=== PATIENT | male | born 1965 | race American Indian/Alaskan Native ===

== ENCOUNTER 2017-10-29 18:00 | Emergency (ER) | payer SELFPAY ==
[2017-10-29 18:48] LABS: Hematocrit 37.4 % (35.5-45.6); Hemoglobin 12.5 gm/dl (11.8-15.2); Mean Corpuscular HGB Conc 33 % (32-34); Mean Corpuscular Hemoglobin 32 pg (28-32); Mean Corpuscular Volume 95 fl (84-94); Platelet Count 210 K/mm3 (140-440); Red Blood Count 3.95 M/mm3 (3.65-5.03); Red Cell Distribution Width 13.8 % (13.2-15.2)
[2017-10-29 18:58] LABS: BUN/Creatinine Ratio 9; Blood Urea Nitrogen 7 mg/dL (9-20); Calcium 8.6 mg/dL (8.4-10.2); Hemolysis Index 8
--- NOTE | 2017-10-29 19:19 | Emergency Department Report ---
ED Male HPI - General Chief complaint: Urogenital-Male Stated complaint: TESTICLE SWELLING/BLOOD IN URINE Time Seen by Provider: 10/29/17 19:08 Source: patient Mode of arrival: Ambulatory Limitations: No Limitations - History of Present Illness Initial comments: Patient is 52 years old male with no significant past medical history presented to the ER with left scrotal swelling for the last week. Patient stated that he had the same issue U month ago and he was treated with antibiotic for 7 days in he symptoms completely resolves. Patient stated that elevation of his testicle help with the pain. He denied any fever nausea or vomiting. Patient is sexually active but he does not mention any partner he has. No other complaints. MD Complaint: testicle swelling, penile discharge, dysuria -: week(s) Location: left testicle Severity: moderate Consistency: intermittent discharge - Related Data Previous Rx's Medication Instructions Recorded Last Taken Type Ciprofloxacin HCl [Ciprofloxacin 500 mg PO Q12H #20 tab 10/29/17 Unknown Rx TAB] Naproxen [Naprosyn] 500 mg PO BID #14 tablet 10/29/17 Unknown Rx Allergies Allergy/AdvReac Type Severity Reaction Status Date / Time No Known Allergies Allergy Unverified 10/29/17 18:10 ED Review of Systems ROS: Stated complaint: TESTICLE SWELLING/BLOOD IN URINE Other details as noted in HPI Comment: All other systems reviewed and negative Constitutional: denies: chills, fever Respiratory: denies: cough, orthopnea, shortness of breath, SOB with exertion Cardiovascular: denies: chest pain, palpitations Gastrointestinal: denies: abdominal pain, nausea, vomiting Genitourinary: dysuria, discharge, testicular pain Neurological: denies: headache ED Past Medical Hx - Past Medical History Previous Medical History?: No - Surgical History Past Surgical History?: No - Social History Smoking Status: Never Smoker Substance Use Type: Marijuana - Medications Home Medications: Home Medications Medication Instructions Recorded Confirmed Last Taken Type Ciprofloxacin HCl [Ciprofloxacin 500 mg PO Q12H #20 tab 10/29/17 Unknown Rx TAB] Naproxen [Naprosyn] 500 mg PO BID #14 tablet 10/29/17 Unknown Rx ED Physical Exam - General Limitations: No Limitations General appearance: alert, in no apparent distress - Head Head exam: Present: atraumatic, normocephalic - Eye Eye exam: Present: normal appearance, PERRL - ENT ENT exam: Present: normal exam, normal orophraynx, mucous membranes moist - Neck Neck exam: Present: normal inspection, full ROM. Absent: tenderness - Respiratory Respiratory exam: Present: normal lung sounds bilaterally. Absent: respiratory distress, wheezes, rales, rhonchi, chest wall tenderness, decreased breath sounds, prolonged expiratory - Cardiovascular Cardiovascular Exam: Present: regular rate, normal rhythm, normal heart sounds - GI/Abdominal GI/Abdominal exam: Present: soft, normal bowel sounds. Absent: distended, tenderness, guarding, rebound, rigid, organomegaly, mass, bruit, pulsatile mass , hernia - exam: Present: testicular tenderness, scrotal swelling. Absent: urethral discharge - Extremities Exam Extremities exam: Present: normal inspection, full ROM, normal capillary refill. Absent: tenderness - Back Exam Back exam: Present: normal inspection, full ROM. Absent: CVA tenderness (R), CVA tenderness (L), muscle spasm - Neurological Exam Neurological exam: Present: alert, oriented X3, CN II-XII intact, normal gait - Skin Skin exam: Present: warm, intact, normal color ED Course Vital Signs 10/29/17 18:07 Temperature 98 F Pulse Rate 82 Respiratory 16 Rate Blood Pressure 140/90 O2 Sat by Pulse 99 Oximetry ED Medical Decision Making - Lab Data Result diagrams: 10/29/17 18:35 10/29/17 18:35 - Radiology Data Radiology results: report reviewed Referring Physician: AFIA PLUNKETT Patient Name: ABRIL GIBSON Date of : 1965 Sex: Male Report Date: 2017-10-29 Report Status: Finalized Findings [address] [address] Ultrasound Report Signed Patient: ABRIL GIBSON MR#: [id number] : 1965 Acct:[id number] Age/Sex: 52 / M ADM Date: 10/29/17 Loc: ED Attending Dr: Ordering Physician: AFIA PLUNKETT Date of Service: 10/29/17 Procedure(s): US testicular doppler comp Accession Number(s): [id number] cc: AFIA PLUNKETT FINAL REPORT PROCEDURE: US TESTICULAR DOPPLER COMP TECHNIQUE: Real-time holland-scale and color flow Doppler sonography in multiple planes of the scrotum, testicles, and epididymes was performed. Velocity spectral waveform analysis Doppler imaging of the arterial inflow and venous outflow of the testicles was performed with image documentation. CPT 53579 and 71806 HISTORY: pain, edema COMPARISON: No prior studies are available for comparison. FINDINGS: RIGHT TESTICLE: Size: 4.2 cm . Appearance: Normal size and echotexture . Arterial blood flow: Normal spectral waveforms, flow velocities and color flow images.. Venous blood flow: Normal spectral waveforms and color flow images. Right epididymis: Normal size and echotexture . Hydrocele: None . LEFT TESTICLE Size: 3.3 cm . Appearance: Normal size and echotexture . Arterial blood flow: Normal spectral waveforms, flow velocities and color flow images.. Venous blood flow: Normal spectral waveforms and color flow images. Leftepididymis: Left epididymis measures 1.3 x 2.1 centimeter increased size of the left epididymis with increased color Doppler flow consistent with acute left epididymitis. Hydrocele: None . IMPRESSION: Acute left epididymitis Transcribed By: WESubhash Dictated By: LAMONT GLYNN MD Electronically Authenticated By: LAMONT GLYNN MD Signed Date/Time: 10/29/171942 DD/ 42 TD/TT: 10/29/171942 Critical care attestation.: If time is entered above; I have spent that time in minutes in the direct care of this critically ill patient, excluding procedure time. ED Disposition Clinical Impression: Swelling of scrotum, Epididymitis, left, UTI (urinary tract infection) Disposition: DC- TO HOME OR SELFCARE Is pt being admited?: No Condition: Stable Instructions: Epididymitis (ED), Urinary Tract Infection in Men (ED) Prescriptions: Ciprofloxacin HCl [Ciprofloxacin TAB] 500 mg PO Q12H #20 tab Naproxen [Naprosyn] 500 mg PO BID #14 tablet Referrals: VERONICA WELCH MD [Primary Care Provider] - 3-5 Days Forms: STI Treatment and Prevention
[2017-10-29] MEDS ORDERED: ROCEPHIN IM ONE (19:29)
[2017-10-29] MEDS ORDERED: XYLOCAINE 1% MPF 5 mL INFILTRATI ONE (19:29)
[2017-10-29] MEDS ORDERED: ZITHROMAX PO ONE (19:29)
--- NOTE | 2017-10-29 19:47 | Ultrasound Report ---
FINAL REPORT PROCEDURE: US TESTICULAR DOPPLER COMP TECHNIQUE: Real-time holland-scale and color flow Doppler sonography in multiple planes of the scrotum, testicles, and epididymes was performed. Velocity spectral waveform analysis Doppler imaging of the arterial inflow and venous outflow of the testicles was performed with image documentation. CPT 09134 and 40105 HISTORY: pain, edema COMPARISON: No prior studies are available for comparison. FINDINGS: RIGHT TESTICLE: Size: 4.2 cm . Appearance: Normal size and echotexture . Arterial blood flow: Normal spectral waveforms, flow velocities and color flow images.. Venous blood flow: Normal spectral waveforms and color flow images. Right epididymis: Normal size and echotexture . Hydrocele: None . LEFT TESTICLE Size: 3.3 cm . Appearance: Normal size and echotexture . Arterial blood flow: Normal spectral waveforms, flow velocities and color flow images.. Venous blood flow: Normal spectral waveforms and color flow images. Leftepididymis: Left epididymis measures 1.3 x 2.1 centimeter increased size of the left epididymis with increased color Doppler flow consistent with acute left epididymitis. Hydrocele: None . IMPRESSION: Acute left epididymitis
[2017-10-29 19:50] LABS: Bacteria,Urine 1+ /HPF (Negative); Bilirubin,Urine NEG (Negative); Blood,Urine MOD (Negative); Color,Urine Yellow (Yellow)
[2017-10-29 19:52] LABS: WBC,Urine > 182.0 /HPF (0.0-6.0)
[2017-10-29 20:17] VITALS: BP 143/98
== END 2017-10-29 20:41 | disposition home or self-care (01) ==
LOC: ED 18:00
DX: N50.89 Other specified disorders of the male genital organs (principal); N45.1 Epididymitis; N39.0 Urinary tract infection, site not specified
CPT/HCPCS: 36415; 80048; 81001; 82550; 85027; 93975; 96372; 99284; J0696

== ENCOUNTER 2019-07-04 06:47 | Emergency (ER) | payer SELFPAY ==
[2019-07-04 06:55] VITALS: BP 145/90
[2019-07-04 08:42] LABS: Bilirubin,Urine NEG (Negative); Blood,Urine LG (Negative); Color,Urine Red (Yellow); Urobilinogen,Urine < 2.0 mg/dL (<2.0)
[2019-07-04 08:53] LABS: RBC,Urine > 182.0 /HPF (0.0-6.0); WBC,Urine > 182.0 /HPF (0.0-6.0)
--- NOTE | 2019-07-04 09:17 | Emergency Department Report ---
ED Male HPI - General Chief complaint: Urogenital-Male Stated complaint: BLOOD IN URINE Time Seen by Provider: 07/04/19 08:06 Source: patient Mode of arrival: Ambulatory Limitations: No Limitations - History of Present Illness Initial comments: Patient is a 53-year-old -[place] male who is presented with blood in his urine this morning. Patient also states he has some dysuria. Patient denies any trauma abdominal pain and testicular pain or swelling. Patient states he does sometimes have some hesitancy when he starts his urinary stream. Patient received blood in his urine before. Severity scale (0 -10): 4 Quality: burning Consistency: intermittent Improves with: none Worsens with: urination blood in urine, dysuria. denies: discharge, swelling, mass, urinary retention, fever, nausea/vomiting, incontinence - Related Data Previous Rx's Medication Instructions Recorded Last Taken Type Ciprofloxacin HCl [Ciprofloxacin 500 mg PO Q12H #20 tab 10/29/17 Unknown Rx TAB] Naproxen [Naprosyn] 500 mg PO BID #14 tablet 10/29/17 Unknown Rx Ciprofloxacin HCl [Ciprofloxacin 500 mg PO Q12HR #20 tab 07/04/19 Unknown Rx TAB] Tamsulosin [Flomax] 0.4 mg PO QDAY #10 cap 07/04/19 Unknown Rx Allergies Allergy/AdvReac Type Severity Reaction Status Date / Time No Known Allergies Allergy Unverified 10/29/17 18:10 ED Review of Systems ROS: Stated complaint: BLOOD IN URINE Other details as noted in HPI Comment: All other systems reviewed and negative ED Past Medical Hx - Past Medical History Previous Medical History?: No - Surgical History Past Surgical History?: No - Social History Smoking Status: Never Smoker Substance Use Type: Marijuana - Medications Home Medications: Home Medications Medication Instructions Recorded Confirmed Last Taken Type Ciprofloxacin HCl [Ciprofloxacin 500 mg PO Q12H #20 tab 10/29/17 Unknown Rx TAB] Naproxen [Naprosyn] 500 mg PO BID #14 tablet 10/29/17 Unknown Rx Ciprofloxacin HCl [Ciprofloxacin 500 mg PO Q12HR #20 tab 07/04/19 Unknown Rx TAB] Tamsulosin [Flomax] 0.4 mg PO QDAY #10 cap 07/04/19 Unknown Rx ED Physical Exam - General Limitations: No Limitations General appearance: alert, in no apparent distress - Head Head exam: Present: atraumatic, normocephalic - Eye Eye exam: Present: normal appearance - ENT ENT exam: Present: mucous membranes moist - Neck Neck exam: Present: normal inspection - Respiratory Respiratory exam: Present: normal lung sounds bilaterally. Absent: respiratory distress, wheezes, rales, rhonchi - Cardiovascular Cardiovascular Exam: Present: regular rate, normal rhythm. Absent: systolic murmur, diastolic murmur, rubs, gallop - GI/Abdominal GI/Abdominal exam: Present: soft, normal bowel sounds. Absent: distended, tenderness, guarding - Rectal Rectal exam: Present: deferred - Extremities Exam Extremities exam: Present: normal inspection - Back Exam Back exam: Present: normal inspection - Neurological Exam Neurological exam: Present: alert, oriented X3 - Psychiatric Psychiatric exam: Present: normal affect, normal mood - Skin Skin exam: Present: warm, dry, intact, normal color. Absent: rash ED Course Vital Signs 07/04/19 06:52 Temperature 98.5 F Pulse Rate 73 Respiratory 18 Rate Blood Pressure 145/90 O2 Sat by Pulse 98 Oximetry ED Medical Decision Making - Lab Data Lab Results 07/04/19 Range/Units 07:20 Urine Color Red (Yellow) Urine Turbidity Turbid (Clear) Urine pH 8.0 H (5.0-7.0) Ur Specific [place] 1.014 (1.003-1.030) Urine Protein 100 mg/dl (Negative) mg/dL Urine Glucose (UA) Neg (Negative) mg/dL Urine Ketones Neg (Negative) mg/dL Urine Blood Lg (Negative) Urine Nitrite Neg (Negative) Urine Bilirubin Neg (Negative) Urine Urobilinogen < 2.0 (<2.0) mg/dL Ur Leukocyte Esterase Tr (Negative) Urine WBC (Auto) > 182.0 H (0.0-6.0) /HPF Urine RBC (Auto) > 182.0 (0.0-6.0) /HPF - Medical Decision Making Urinalysis shows evidence of acute cystitis. Patient be started on antibiotics as well as Flomax and be discharged home with follow-up with urology. Critical care attestation.: If time is entered above; I have spent that time in minutes in the direct care of this critically ill patient, excluding procedure time. ED Disposition Clinical Impression: Acute cystitis Qualifiers: Hematuria presence: with hematuria Qualified Code(s): N30.01 - Acute cystitis with hematuria Disposition: DC- TO HOME OR SELFCARE Is pt being admited?: No Does the pt Need Aspirin: No Condition: Stable Instructions: Urinary Tract Infection in Men (ED) Referrals: MUSHTAQ HOLLIDAY MD [Staff Physician] - 3-5 Days Time of Disposition: 09:16
== END 2019-07-04 10:14 | disposition home or self-care (01) ==
LOC: ED 06:47
DX: N30.00 Acute cystitis without hematuria (principal); F12.10 Cannabis abuse, uncomplicated; Z79.899 Other long term (current) drug therapy
CPT/HCPCS: 81001